=== PATIENT | female | born 1995 | race Caucasian/White ===

== ENCOUNTER 2018-02-04 22:42 | Inpatient (IN) | payer OTHER ==
[~2018-02-04] VITALS: Ht 154.9 cm; Wt 49.9 kg
[2018-02-05] MEDS ORDERED: ONDANSETRON HCL 4MG/2ML VIAL IV STA ×2 (01:16→02:50)
[2018-02-05] MEDS ORDERED: SODIUM CHLORIDE 0.9% 1,000 ML IV ONE ×3 (01:16→07:24)
[2018-02-05] MEDS ORDERED: KETOROLAC 30MG/ML VIAL IV STA (01:16)
[2018-02-05 01:28] LABS: BASOPHILS % 0.2 % (0.0-2.0); EOSINOPHILS % 0.1 % (0.0-5.0); HEMATOCRIT. 39.1 % (36.0-48.0); HEMOGLOBIN. 13.2 g/dL (12.0-16.0); MEAN CORPUSCULAR HEMOGLOBIN 29.9 pg (28.0-32.0); MEAN CORPUSCULAR VOLUME 88.6 fL (81.0-99.0); MEAN PLATELET VOLUME 7.1 fl (7.4-10.4); MONOCYTES % 5.1 % (2.0-8.0); NEUTROPHILS % 84.6 % (40.0-76.0); PLATELET 364 x1000/uL (130-400); RED BLOOD CELL COUNT 4.41 mill/uL (4.2-5.4); RED CELL DISTRIBUTION WIDTH 12.8 % (11.6-14.6)
[2018-02-05 01:29] LABS: CLARITY URINE CLOUDY (CLEAR); COLOR URINE ORANGE (YELLOW); KETONES URINE TRACE (NEGATIVE); LEUKOCYTE ESTERASE URINE 1+ (NEGATIVE); NITRITE URINE NEGATIVE (NEGATIVE); OCCULT BLOOD URINE 3+ (NEGATIVE); PH URINE 8.5 (4.5-8.0); PROTEIN URINE 1+ (NEGATIVE)
[2018-02-05 01:31] LABS: CHLORIDE 102 mEq/L (98-107)
[2018-02-05 01:32] LABS: INR 1.1; PROTHROMBIN TIME 11.4 sec (9.4-11.6)
[2018-02-05 01:55] LABS: *AMPHETAMINES SCREEN URINE NEGATIVE (NEGATIVE); *BARBITURATES SCREEN URINE NEGATIVE (NEGATIVE); *BENZODIAZEPINES SCREEN URINE NEGATIVE (NEGATIVE); *COCAINE SCREEN URINE NEGATIVE (NEGATIVE); METHADONE URINE SCREEN NEGATIVE (NEGATIVE)
[2018-02-05 01:56] LABS: CANNABINOID URINE SCREEN NEGATIVE (NEGATIVE); OPIATES URINE SCREEN NEGATIVE (NEGATIVE); PHENCYCLIDINE URINE SCREEN NEGATIVE (NEGATIVE)
[2018-02-05] MEDS ORDERED: MORPHINE SULFATE 4 MG/ML CPJ (NOT FOR IM USE) IV STA (02:50)
[2018-02-05] MEDS ORDERED: TAMSULOSIN HCL 0.4MG SR CAPSULE PO ONE (03:15)
[2018-02-05] MEDS ORDERED: KETOROLAC 30MG/ML VIAL IV ONE (03:15)
[2018-02-05] MEDS ORDERED: CEFTRIAXONE 1 G PREMIX 50 ML IV ONE (05:45)
[2018-02-05 08:25] VITALS: BP 103/59
[2018-02-05 09:20] VITALS: BP 103/59
[2018-02-05] MEDS ORDERED: DEXT 5%/0.45% NACL 1000ML 1,000 ML IV SCH (09:55)
[2018-02-05] MEDS ORDERED: CLONIDINE 0.1MG TABLET PO PRN (10:00)
[2018-02-05] MEDS ORDERED: HYDROCODONE/ACETAMINOPHEN 5/325MG TABLET PO PRN (10:00)
[2018-02-05] MEDS ORDERED: ONDANSETRON HCL 4MG/2ML VIAL IV PRN (10:00)
[2018-02-05] MEDS ORDERED: ACETAMINOPHEN 325MG TABLET PO PRN (10:00)
[2018-02-05] MEDS ORDERED: ENOXAPARIN 40MG/0.4ML SYR SUBCUT SCH (10:30)
[2018-02-05] MEDS ORDERED: FOLIC ACID 1MG TABLET PO SCH (11:00)
[2018-02-05 12:00] VITALS: BP 95/58
[2018-02-05 14:02] LABS: HCG SCREEN NEGATIVE
[2018-02-05 14:03] LABS: CHLORIDE 110 mEq/L (98-107)
[2018-02-05 16:00] VITALS: BP 92/54
[2018-02-05 17:01] LABS: CREATINE KINASE 109 IU/L (26-192)
[2018-02-05 17:21] LABS: HEMATOCRIT 31.9 % (36.0-48.0); MEAN CORPUSCULAR HEMOGLOBIN 30.6 pg (28.0-32.0); MEAN CORPUSCULAR VOLUME 88.8 fL (81.0-99.0); PLATELET 278 x1000/uL (130-400); RED CELL DISTRIBUTION WIDTH 12.9 % (11.6-14.6)
[2018-02-05 19:45] VITALS: BP 94/59
[2018-02-06] MEDS ORDERED: CEFTRIAXONE 1 G PREMIX 50 ML IV SCH (06:30)
== END 2018-02-05 20:30 | disposition home or self-care (01) | DRG 694 ==
LOC: ER 02-05 00:41 → 6EST 02-05 07:05
PROVIDERS: ADMIT Internal Medicine; ATTEND Internal Medicine
DX: N20.2 Calculus of kidney with calculus of ureter (principal); N39.0 Urinary tract infection, site not specified; Z72.89 Other problems related to lifestyle
CPT/HCPCS: 36415; 71045; 74176; 76770; 80048; 80053; 80305; 81003; 82550; 83605; 83690; 84484; 84703; 85025; 85027; 85610; 87040; 87086; 93005; 96365; 96375; 99285; J0696; J1650; J1885; J2405; J3490; J7030

== ENCOUNTER 2023-11-17 22:01 | Emergency (ER) | payer BC, OTHER ==
[~2023-11-17] VITALS: Ht 154.9 cm; Wt 58.0 kg
[2023-11-17 22:28] VITALS: O2SAT 100
[2023-11-17 22:57] LABS: CLARITY URINE CLOUDY (CLEAR); COLOR URINE YELLOW (YELLOW); GLUCOSE URINE NEGATIVE (NEGATIVE); KETONES URINE NEGATIVE (NEGATIVE); LEUKOCYTE ESTERASE URINE NEGATIVE (NEGATIVE); NITRITE URINE NEGATIVE (NEGATIVE); OCCULT BLOOD URINE 3+ (NEGATIVE); PROTEIN URINE NEGATIVE (NEGATIVE); SPECIFIC GRAVITY URINE 1.025 (1.005-1.030)
[2023-11-17 23:19] LABS: BACTERIA URINE 2+; SQUAMOUS EPITHELIAL CELL URINE 1+ /lpf (RARE/1+); WBC URINE 0-2 /hpf (0-2)
[2023-11-17 23:31] LABS: ALANINE AMINOTRANSFERASE 11 IU/L (10-49); ALBUMIN 4.5 g/dL (3.2-4.8); ASPARTATE AMINOTRANSFERASE 15 IU/L (<34); BILIRUBIN TOTAL 0.4 mg/dL (0.1-1.0); CALCIUM 9.7 mg/dL (8.7-10.4); CARBON DIOXIDE 28 mEq/L (21-32); CHLORIDE 106 mEq/L (98-107); CREATININE 0.6 mg/dL (0.6-1.0); GLUCOSE 116 mg/dL (70-105); POTASSIUM 3.9 mEq/L (3.5-5.1); PROTEIN TOTAL 7.3 g/dL (6.0-8.3); SODIUM 139 mEq/L (136-145); UREA NITROGEN BLOOD 14 mg/dL (9-23)
[2023-11-17 23:35] LABS: BASOPHILS % 0.8 % (0.0-2.0); EOSINOPHILS % 2.3 % (0.0-5.0); HEMATOCRIT. 38.9 % (36.0-48.0); HEMOGLOBIN. 13.2 g/dL (12.0-16.0); LYMPHOCYTES % 22.6 % (20.0-50.0); MEAN CORPUSCULAR HEMOGLOBIN 30.3 pg (28.0-32.0); MEAN CORPUSCULAR VOLUME 89.1 fL (81.0-99.0); NEUTROPHILS % 68.3 % (40.0-76.0); PLATELET 318 x1000/uL (130-400); RED BLOOD CELL COUNT 4.37 mill/uL (4.2-5.4); WHITE BLOOD COUNT 8.6 x1000/uL (4.5-11.0)
[2023-11-18 00:45] VITALS: BP 104/60; PULSE 56; RESP 16; TEMP 98.2
== END 2023-11-18 00:44 | disposition home or self-care (01) ==
LOC: ER 22:01
DX: G89.29 Other chronic pain (principal); R10.9 Unspecified abdominal pain
CPT/HCPCS: 80053; 81003; 81025; 83690; 85025; 36415; 99283; Z7610

== ENCOUNTER 2023-11-20 08:37 | Emergency (ER) | payer BC ==
[~2023-11-20] VITALS: Ht 154.9 cm; Wt 58.1 kg
[2023-11-20 08:43] VITALS: BP 101/64; PULSE 70; RESP 16; TEMP 98.4; O2SAT 99
[2023-11-20 09:26] LABS: CLARITY URINE CLEAR (CLEAR); COLOR URINE DARK YELLOW (YELLOW); GLUCOSE URINE NEGATIVE (NEGATIVE); KETONES URINE NEGATIVE (NEGATIVE); LEUKOCYTE ESTERASE URINE TRACE (NEGATIVE); NITRITE URINE NEGATIVE (NEGATIVE); OCCULT BLOOD URINE 3+ (NEGATIVE); PH URINE 6.5 (4.5-8.0); PROTEIN URINE NEGATIVE (NEGATIVE); SPECIFIC GRAVITY URINE 1.027 (1.005-1.030)
[2023-11-20 09:27] LABS: BASOPHILS % 0.8 % (0.0-2.0); EOSINOPHILS % 1.4 % (0.0-5.0); HEMOGLOBIN. 13.8 g/dL (12.0-16.0); LYMPHOCYTES % 23.5 % (20.0-50.0); MEAN CORPUSCULAR HEMOGLOBIN 30.5 pg (28.0-32.0); MEAN CORPUSCULAR HGB CONC 33.6 g/dL (31.0-37.0); MEAN CORPUSCULAR VOLUME 90.7 fL (81.0-99.0); MEAN PLATELET VOLUME 6.9 fl (7.4-10.4); MONOCYTES % 6.7 % (2.0-8.0); NEUTROPHILS % 67.6 % (40.0-76.0); PLATELET 361 x1000/uL (130-400); RED BLOOD CELL COUNT 4.52 mill/uL (4.2-5.4); RED CELL DISTRIBUTION WIDTH 13.3 % (11.6-14.6); WHITE BLOOD COUNT 7.8 x1000/uL (4.5-11.0)
[2023-11-20 09:35] LABS: BACTERIA URINE TRACE; SQUAMOUS EPITHELIAL CELL URINE 2+ /lpf (RARE/1+); YEAST URINE NONE SEEN
[2023-11-20 09:36] LABS: HCG SCREEN NEGATIVE
[2023-11-20 09:40] LABS: ALANINE AMINOTRANSFERASE 184 IU/L (10-49); ALBUMIN 4.7 g/dL (3.2-4.8); ASPARTATE AMINOTRANSFERASE 312 IU/L (<34); BILIRUBIN TOTAL 1.8 mg/dL (0.1-1.0); CALCIUM 8.8 mg/dL (8.7-10.4); CARBON DIOXIDE 25 mEq/L (21-32); CHLORIDE 105 mEq/L (98-107); CREATININE 0.6 mg/dL (0.6-1.0); GLUCOSE 94 mg/dL (70-105); POTASSIUM 3.7 mEq/L (3.5-5.1); PROTEIN TOTAL 7.6 g/dL (6.0-8.3); SODIUM 137 mEq/L (136-145); UREA NITROGEN BLOOD 12 mg/dL (9-23)
[2023-11-20] MEDS ORDERED: IOHEXOL-300 100 ML BOTTLE ONE (14:34)
== END 2023-11-20 14:03 | disposition home or self-care (01) ==
LOC: ER 08:37
DX: K80.50 Calculus of bile duct without cholangitis or cholecystitis without obstruction (principal); Z87.442 Personal history of urinary calculi
CPT/HCPCS: 99285; 74177; 76705; 80053; 81003; 81025; 84703; 83690; 85025; 85610; 36415; Q9967